=== PATIENT | male | born 1955 | race Two or more races ===

== ENCOUNTER 2024-03-20 06:22 | Inpatient (IN) | payer OTHER, MEDICAID ==
[2024-03-20] VITALS (8 sets, daily range): BP systolic 107–120; BP diastolic 72–82; PULSE 70–101; RESP 12–20; TEMP 98.6; O2SAT 94–95
[~2024-03-20] VITALS: Ht 180.3 cm; Wt 88.5 kg
[~2024-03-20 06:22] MED LIST: APIX2.5T PO; ATOR80TA PO; CARV3.1240 PO; CLOP75TA28 PO; LISI20TA56 PO; TAMS-35 PO
[2024-03-20] MEDS: PROTAMINE SULFATE 10 MG/ML 5ML VIAL IV ONE (06:35)
[2024-03-20] MEDS ORDERED: LIDOCAINE HCL 2% TOP JELLY 5ML TOP ONE (06:45)
[2024-03-20] MEDS ORDERED: ROCURONIUM 10MG/ML 10ML VIAL IV ONE (06:50)
[2024-03-20] MEDS ORDERED: PROPOFOL 10 MG/ML 20 ML IV ONE (06:50)
[2024-03-20] MEDS ORDERED: GLYCOPYRROLATE 0.2 MG/ML 1ML VIAL ONE (06:50)
[2024-03-20] MEDS ORDERED: ONDANSETRON HCL 4 MG/2 ML VIAL ONE (06:51)
[2024-03-20] MEDS ORDERED: LIDOCAINE 2% (LOCAL ANESTH.) PF 5ml SDV ONE (06:51)
[2024-03-20] MEDS ORDERED: SODIUM CHLORIDE LOCK 10 ML ONE ×3 (06:52→07:50)
[2024-03-20] MEDS ORDERED: PHENYLEPHRINE HCL 10 MG/ML VL ONE ×2 (06:52→07:50)
[2024-03-20] MEDS ORDERED: LIDOCAINE 1% INJ PF 5ML AMP ONE (06:52)
[2024-03-20] MEDS ORDERED: DexAMETHasone SOD PHOS 10MG/1ML VIAL INJ ONE (06:52)
[2024-03-20] MEDS: HEPARIN SODIUM (PORCINE) 5000 UNITS/ML 1ML VIAL ONE ×2 (07:15→08:09)
[2024-03-20] MEDS: ceFAZolin 2 GM/D5W100ml 100 ML IV ONE (07:20)
[2024-03-20] MEDS ORDERED: SUGAMMADEX 200mg/2ml Vial (100MG/ML) IV ONE (07:27)
[2024-03-20] MEDS ORDERED: ESMOLOL HCL 10 ML IV ONE (07:42)
[2024-03-20] MEDS ORDERED: fentaNYL CITRATE 100 MCG/2 ML VL ONE (07:54)
[2024-03-20] MEDS: BUPIVACAINE HCL 0.25% P/F 10 ML VIAL ONE (08:07)
[2024-03-20] MEDS: LIDOCAINE 1% (LOCAL ANESTH.) PF 5ml SDV ONE (08:08)
[2024-03-20] MEDS: LIDOCAINE 1% HCL (LOCAL ANESTH.) INJ 20ML MDV ONE (08:08)
[2024-03-20] MEDS ORDERED: METOPROLOL TARTRATE 1MG/1ML-5ML VIAL IV ONE ×2 (09:31→21:30)
[2024-03-20] MEDS ORDERED: FLUMAZENIL 0.1 MG/ML INJ 10ML MDV IV PRN (10:00)
[2024-03-20] MEDS ORDERED: hydrALAZINE HCL 20 MG/ML VL IV PRN (10:00)
[2024-03-20] MEDS ORDERED: fentaNYL CITRATE 100 MCG/2 ML VL IV PRN (10:00)
[2024-03-20] MEDS ORDERED: NALOXONE HCL 0.4 MG/ML VIAL IV PRN (10:00)
[2024-03-20] MEDS ORDERED: ePHEDrine SULFATE 50 MG/ML AMP IV PRN (10:00)
[2024-03-20] MEDS ORDERED: oxyCODONE HCL 5MG TAB PO PRN (10:00)
[2024-03-20] MEDS ORDERED: ONDANSETRON HCL 4 MG/2 ML VIAL IV PRN ×2 (10:00→14:00)
--- NOTE | 2024-03-20 10:02 | POSTOP ---
Post-Operative Note Post-Operative Note Preop Diagnosis Left ICA critical stenosis Postop Diagnosis: Same Operation performed Left carotid endarterectomy Specimen Left carotid plaque Anesthesia: General Anesthesiologist: General endotracheal tube Blood Loss(fluid mgmt) 200 mL Surgeon None Torres Gimenez MD Complications & Mgmt None Additional Remarks Stable to PACU Date 03/20/24 Time 10:00 TORRES GIMENEZ Jr., MD Mar 20, 2024 10:02
--- NOTE | 2024-03-20 10:07 | DVHOP2 ---
Operative Report - 2 Report Details Date: 03/20/24 Preop Diagnosis: Left ICA critical stenosis Postop Diagnosis: Same Surgeon: Torres Gimenez MD Anesthesiologist: General endotracheal tube Anesthesia: General Consent: The patient was informed of the risks and benefits of the procedure. These include but are not limited to complications of anesthesia, postoperative infection, incomplete relief of symptoms, recurrence of symptoms, damage to bloo d vessels, nerves and tendons, deep venous thrombosis, pulmonary embolism and possible need for repeat surgery in the future. Complications: None Estimated Blood Loss: 200 mL Name of Procedure Performed Left carotid endarterectomy Procedure Details Procedure Details: The patient was identified in preop hold area. Patient was consented and preopped by myself. He was brought back to the operating room placed on operating supine position after adequate induction of anesthesia antibiotics and time-out the left neck was prepped and draped in normal surgical fashion. Standard left carotid endarterectomy incision was made Bovie cauterization was used for hemostasis dissection was taken down through the platysma. The left IJ was then retracted laterally the facial vein was divided with silk sutures and hemoclips. The common carotid artery was then proximally controlled with vessel loops. Dissection was then taken up to the bifurcation 1% preservative-free lidocaine was injected in the carotid bulb no hemodynamic changes were noted. The superior thyroid artery and the external carotid artery were then proximally controlled with vessel loops individually. Finally the internal carotid artery was controlled distal to the plaque in the proximal ICA. 5000 units of heparin was then given. After 5 minutes the vessels involved were all clamped. Arteriotomy was made in the common carotid artery was extended into the internal carotid artery at this point in time the plaque was excised. A Cantor shunt was inserted and arterial flow was restored to the internal carotid artery were this point in time the intima of the common and internal carotid artery were inspected no further debris or plaque were noted a bovine pericardial patch was then sewn to the common and internal carotid artery in a running fashion with 6 0 Prolene sutures. Prior to completion of the anastomosis the shunt was removed. The anastomosis was complete at this point in time flow was restored to all vessels. Initially the external carotid artery was flow was restored common carotid artery was restored and finally the internal carotid artery was restored. The anastomosis was hemostatically stable. No bleeding noted. The wound was then irrigated out a 7 K[place] flat SCOTT drain was then inserted through a lateral incision. This was secured in place with the 3-0 nylon suture. Then the wound was then closed with the deep layer of including the carotid sheath wi th interrupted 2-0 Vicryl sutures followed by the platysmal layer being reapproximated with 2-0 Vicryl sutures followed by the dermal layer running 3-0 Vicryl suture. Followed by skin closure with 4-0 Monocryl subcuticular suture. Dermabond was applied to the skin a sterile dressing was applied on top of that patient awoke without any difficulties. Sponge and needle counts were correct. Patient was taken to the PACU in stable condition. Specimen: Left carotid plaque Condition Stable Disposition pacu TORRSE GIMENEZ Jr., MD Mar 20, 2024 10:07
[2024-03-20] MEDS ORDERED: NITROGLYCERIN 0.4 MG SL TAB SL PRN (14:00)
[2024-03-20] MEDS ORDERED: DOCUSATE SOD 100 MG CAP PO PRN (14:00)
[2024-03-20] MEDS ORDERED: ACETAMINOPHEN 325 MG TAB PO PRN (14:00)
[2024-03-20] MEDS ORDERED: HYDROcodone-ACET 5/325MG TAB PO PRN (14:00)
[2024-03-20] MEDS ORDERED: MORPHINE SULFATE INJ 2 MG/ml SYRG IV PRN (14:00)
[2024-03-20] MEDS: HYDROmorphone HCL 2 MG/ML VL/or syr IV PRN (15:12)
[2024-03-20] MEDS: HYDROmorphone HCL 2 MG/ML VL/or syr ONE (15:20)
[2024-03-20] MEDS ORDERED: KETAMINE 50mg/ML 1ml syringe IV ONE (15:59)
--- NOTE | 2024-03-20 16:38 | DVHHP2 ---
History of Present Illness Reason for Visit: PATIENT HAD ELECTIVE SURGERY FOR LEFT CAROTID ARTERY STENOSIS. History of Present Illness 68-YEAR-OLD MALE WITH A KNOWN HISTORY OF CHRONIC AFIB CURRENTLY ON ELIQUIS, HYPERTENSION, KNOWN CORONARY ARTERY DISEASE STATUS POST PCI WITH FIVE STENTS WHO INITIALLY PRESENTED TO THE HOSPITAL WITH ELECTROSURGERY ARTERY STENOSIS. PATIENT UNDERWENT LEFT CAROTID ENDARTERECTOMY. PATIENT DENIES ANY CHEST PAIN SHORTNESS OF BREATH DENIES ANY TIA OR STROKE-LIKE SYMPTOM .DENIES ANY FEVER , COUGH OR PHLEGM, HEMATEMESIS, MELENA, HEMATURIA. Cardiovascular: AFIB, CAD, HTN, AL, hyperipidemia Past Surgical History: Other (LEFT CAROTID ENDARTERECTOMY.) Family History: None Smoke: No ALCOHOL: none Review of Systems Review of Systems TWELVE REVIEW OF SYSTEM WERE NEGATIVE EXCEPT MENTIONED ABOVE. Allergies: Coded Allergies: NO KNOWN ALLERGIES (Unverified , 03/17/24) Medications Current Medications Medications Dose Ordered Sig/Suzanna Route Start Time Stop Time Status Last Admin Dose Admin Nicardipine HCl 250 ml @ 50 mls/hr Q5H IV 03/20/24 07:45 Oxycodone HCl 10 mg ONCE PRN PO 03/20/24 10:00 Hold Acetaminophen/ Hydrocodone Bitart 1 tab Q4HP PRN PO 03/20/24 14:00 Hold Ondansetron HCl 4 mg Q4HP PRN IV 03/20/24 14:00 Docusate Sodium 100 mg BIDPRN PRN PO 03/20/24 14:00 Acetaminophen 650 mg Q6HP PRN PO 03/20/24 14:00 Nitroglycerin 0.4 mg Q5MINP PRN SL 03/20/24 14:00 Morphine Sulfate 2 mg Q30M PRN IV 03/20/24 14:00 Exam Vital Signs Vital Signs Date Time Temp Pulse Resp B/P (MAP) Pulse Ox O2 Delivery O2 Flow Rate FiO2 03/20/24 16:05 97 13 105/72 (83) 97 03/20/24 11:05 Nasal Cannula 2.0 03/20/24 09:47 97.6 97.6 Exam HEENT PUPILS REACTIVE NECK HAS ANTISEPTIC NURSE IN THE LEFT CALF AREA CVS S1-S2 REGULAR RATE AND RHYTHM 0 EIGHT GI POSITIVE BOWEL SOUNDS 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 1. LEFT CAROTID ARTERY STENOSIS STATUS POST CAROTID ENDARTERECTOMY 2. CHRONIC AFIB 3. HYPERTENSION 4. CORONARY ARTERY DISEASE STATUS POST PCI WITH FIVE STENTS 5. BPH -ADMIT TO ICU FOR CLOSE MONITORING. -CONTINUE CURRENT MANAGEMENT, DISCHARGE PLAN PER VASCULAR SURGERY Plan discussed with: Patient My Orders Orders - MIGUELITO HENRY MD Procedure Category Date Status Time Code Status CODE 03/20/24 Transmitted 13:58 2 Gm Sodium Diet DIET 03/20/24 Transmitted Dinner Hydrocodone-Acet PHA 03/20/24 In Process 5/325mg Tab ([place] 14:00 Ondansetron Hcl PHA 03/20/24 In Process (Zofran) 14:00 Docusate Sodium PHA 03/20/24 In Process Capsule (Colace 14:00 Pt Request For Service PT 03/20/24 Logged 13:58 Condition: Fair ROMINA 03/20/24 In Process 13:58 Acetaminophen Tablet PHA 03/20/24 In Process (Tylenol Tablet) 14:00 Nitroglycerin PHA 03/20/24 In Process Sublingual (Ntrostat 14:00 Morphine Sulfate PHA 03/20/24 In Process Injection 14:00 Stat Ekg For Chest ROMINA 03/20/24 In Process Pain 13:58 Notify Md Of Changes ROMINA 03/20/24 In Process From Base 13:58 Cytology Laboratory Manager For ROMINA 03/20/24 In Process 24 Hours 13:58 Emergency Dysrhythmia [facility] 03/20/24 In Process Protocol 13:58 Rhythm Strips Once ROMINA 03/20/24 In Process Every Shift 13:58 Oxygen By Nasal RT 03/20/24 Transmitted Cannula 13:58 Admit ADMIT 03/20/24 Transmitted 14:35 Date of Service: Mar 20, 2024 Billing Provider: MIGUELITO HENRY MD Common Visit Codes: NOT BILLABLE MIGUELITO HENRY MD Mar 20, 2024 16:38
[2024-03-21] VITALS (53 sets, daily range): BP systolic 120–186; BP diastolic 45–128; PULSE 76–113; RESP 0–23; TEMP 36.9; O2SAT 94–98
[2024-03-21] MEDS ORDERED: IOHEXOL 350 MG/ML 100ML IJ ONE ×2 (01:49→01:58)
--- NOTE | 2024-03-21 02:27 | BSKYNEURO ---
[facility] Note # Demographics Consult Type: Acute Stroke Level 1 (0-4.5 hrs) Patient Location: Inpatient First Name: Willian Last Name: Nadege Date of : 1955 Age: 68 Gender: Male Facility: [facility] Time of Initial Page (): 03/21/2024, 00:59 Time of Return Call (): 03/21/2024, 01:12 # HPI Chief Complaint: - speech changes History: 68M with chronic atrial fibrillation on apixaban, HTN, CAD s/p stents, HLD admitted for a left carotid endarterectomy noted to have asymmetric face, word finding difficulties, and slurred speech. [id number]; noted at 0045. # Scores Time of exam and NIHSS (): 03/21/2024, 01:25 Level of Consciousness 1a: [0] = Alert; keenly responsive LOC Questions 1b: [0] = Answers both questions correctly LOC Commands 1c: [0] = Performs both tasks correctly Best Gaze 2: [0] = Normal Visual 3: [0] = No visual loss Facial Palsy 4: [2] = Partial paralysis Motor Arm Left 5a: [0] = No drift Motor Arm Right 5b: [0] = No drift Motor Leg Left 6a: [0] = No drift Motor Leg Right 6b: [0] = No drift Limb Ataxia 7: [0] = Absent Sensory 8: [0] = Normal Best Language 9: [0] = No aphasia Dysarthria 10: [1] = [id number] dysarthria Extinction and Inattention 11: [0] = No abnormality NIHSS Total: 3 # Data Time Head CT personally read by me (): 03/21/2024, 02:[address]: - no bleed - preliminarily reviewed by me, please refer to radiology read for official reading CTA Head: - no large vessel occlusion - preliminarily reviewed by me, please refer to radiology read for official reading CTA Neck: - patent vessels - preliminarily reviewed by me, please refer to radiology read for official reading # Assessment Impression: r/o stroke # Plan Thrombolytic/Intervention: NOT IV Thrombolysis or IA Intervention candidate Thrombolytic Exclusion (< 3 hour window): - major surgery < 14 days Intraarterial Exclusion: - no large vessel occlusion (LVO) Target Blood Pressure: - SBP < 220 - DBP < 105 Labs: - hemoglobin A1c - lipid panel Imaging: (urgency: routine): - MRI Brain without contrast Diagnostic Test: - echo without bubble study Therapy/Evaluation: - PT/OT evaluation - speech/swallow consultation Medication: ASA 325 x1 then 81 daily while apixaban is held Restart apixaban in 1-2 days if OK with vascular surgery High intensity statin with goal LDL < 70 Other: - If patient has any neurological deterioration please call me back immediately Disposition: continue admission # Logistics Attestation of consult completion: The patient is located at: [facility]. Facility staff participated in the visit. I performed this t elemedicine visit from my offsite office utilizing interactive 2 way audio and visual telecommunication technology. Consent: Verbal consent was obtained from the patient and/or family for this encounter. Total time spent in telemedicine encounter: I spent 15 minutes reviewing clinical data and/or imaging, obtaining history, examining the patient, communicating with the onsite care team, and in preparation of this report. Electronically signed at 03/21/2024 02:27 ([place] Time) by Rafael Drew MD Yes RAFAEL DREW MD Mar 21, 2024 02:27
[2024-03-21 02:54] LABS: Basophils # (auto) 0 10 ^3/uL (0-0.2); Basophils % (auto) 0.2 % (0.0-2.0); Eosinophils # (auto) 0 10 ^3/uL (0-0.8); Hematocrit 41.9 % (41.0-53.0); Hemoglobin 14.2 g/dL (13.5-17.5); Lymphocytes % (auto) 6.7 % (10.0-50.0); Mean Corpuscular Hemoglobin 30.5 pg (28.0-32.0); Mean Corpuscular Hgb Conc. 33.9 g/dL (32.0-36.0); Monocytes % (auto) 6.6 % (0.0-12.0); Neutrophils % (auto) 86.5 % (37.0-80.0); Platelet Count (auto) 227 10^3/uL (140-450); Red Blood Cells 4.66 10^6/uL (4.5-5.90); Red Cell Distribution Width 12.9 % (11.8-14.3); White Blood Cell 15.1 10^3/uL (4.4-10.8)
[2024-03-21 03:12] LABS: Alanine Aminotransferase 22 U/L (7-40); Alkaline Phosphatase 51 U/L (46-116); Anion Gap 10 (5-15); Aspartate Aminotransferase 13 U/L (13-40); BUN/Creatinine Ratio 19.4 (10.0-20.0); Blood Urea Nitrogen 19 mg/dL (9-23); Calcium 9.6 mg/dL (8.7-10.4); Carbon Dioxide 23 mmol/L (20-31); Chloride 101 mmol/L (98-107); Potassium 4.6 mmol/L (3.5-5.1)
[2024-03-21 03:13] LABS: Bilirubin, Total 0.9 mg/dL (0.2-1.0); Total Protein 6.3 g/dL (5.7-8.2)
[2024-03-21 03:14] LABS: INR 1.03 (0.9-1.15); Partial Thromboplastin Time 25.2 SEC (24.5-34.5); Prothrombin Time 10.9 sec (9.3-11.8)
[2024-03-21 03:15] LABS: Glucose 165 mg/dL (74-106); Sodium 134 mmol/L (136-145)
[2024-03-21] MEDS: SODIUM CHLORIDE 0.9% 1,000 ML IV SCH (03:22)
--- NOTE | 2024-03-21 03:56 | DVH ---
Examination: HWOCT CLINICAL INDICATION: R/O CVA. COMPARISON: None. CONTRAST USED: Intravenous. CT ANGIOGRAPHY HEAD NECK TECHNIQUE: Axial images were obtained through the head and neck with contrast. Sagittal, coronal an d oblique reconstructions were included, as well as MIP reconstruction. The 3-D reconstructed images are also performed. CT scan was done according to ALARA (As Low As Reasonably Achievable). TECHNICAL QUALITY: Adequate. FINDINGS: ARTERIES OF THE NECK: The common carotid arteries are normal on both sides. Cervical course of bilateral internal carotid arteries is normal. Scattered atherosclerotic calcific plaques noted at the bilateral carotid bifurcations (right more th an left). The external carotid artery and branches are normal. Both vertebral arteries appear normal in the neck. The bilateral internal jugular veins show normal contrast opacification. ARTERIES OF THE BRAIN: No evidence of stenosis or aneurysm or AVM is visualized. The cavernous and supraclinoid parts of the internal carotid arteries show normal caliber. Atherosclerotic calcifications noted in intracranial parts of bilateral internal carotid and vertebra l arteries. The anterior cerebral arteries and anterior communicating artery appear normal. The M1, M2 and M3 segments of the middle cerebral arteries appear normal on both sides. Hypoplastic right posterior communicating artery. The left posterior communicating artery appears normal. The posterior cerebral arteries (P1, P2 and P3 segments) appear normal. The basilar artery and its bifurcation appear normal. The intracranial part of the vertebral arteries appears normal. The visualized major cerebral veins and dural venous sinuses are normal, with no filling defect seen within them. Visualized lung apices: Surgical drain noted on the left side with its tip posteroinferior to the left submandibular gland. 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 Few small radiodensities in the neck on the left side, deep to the left sternocleidomastoid muscle. Advised clinical correlation. Subpleural subsegmental atelectatic areas and/or scarring in the dependent parts of bilateral lung ap ices. Areas of ground-glass attenuation noted in visualized bilateral lung apices, larger of approximate si ze 23 x 18 mm on the right side. Advised dedicated further evaluation with CT chest without contrast . IMPRESSION: 1. No thrombosis or stenosis or aneurysm is seen. 2. Atherosclerotic calcifications noted in intracranial parts of bilateral internal carotid, vertebr al arteries and at bilateral carotid bifurcations (right more than left). 3. Chronic and/or ancillary findings as described above. CT HEAD WITHOUT CONTRAST TECHNIQUE: The examination was performed obtaining 5 mm slices without contrast. CT scan was done ac cording to ALARA (As Low as Reasonably Achievable). Multiplanar reconstructions were obtained. FINDINGS: SUPRATENTORIAL BRAIN: Cerebral Hemispheres: There is no midline shift or mass effect, intra or extra-axial fluid collections or hemorrhage. Periventricular White Matter/Basal Ganglia: No abnormal areas of altered attenuation within the periventricular white matter or basal ganglia. POSTERIOR FOSSA: The brainstem is normal and the visualized cerebellar hemispheres are unremarkable. VENTRICULAR SYSTEM: The ventricular system is normal in size. There is no evidence of hydrocephalus or transependymal flow of cerebrospinal fluid. SKULL BASE AND PARASELLAR REGION: The skull base is normal with no parasellar masses or abnormalities identified. CALVARIUM AND SCALP REGION: No abnormality is seen. PARANASAL SINUSES: No significant inflammatory changes are identified in the visualized paranasal sinuses. Scleral buckle noted in the right eye. Dental prostheses noted giving intense adjacent streak artifacts. IMPRESSION: 1. No evidence of acute large vessel territorial ischemic infarction or intraparenchymal hematoma in current study. 2. Chronic and / or ancillary findings as described above. 3. Advised further evaluation with MRI brain without contrast if clinically indicated. Electronically Signed 03/21/2024 03:54 Randall Gonzalez
--- NOTE | 2024-03-21 07:16 | DVHPN2 ---
Progress Note Date Seen: Mar 21, 2024 Has the PT tested + for MRSA If YES, has PT been informed?: No Medical Necessity Reason Pt with a Central, PICC or Fol: No Subjective Patient reports: Other (MILD PAIN IN THE LEFT NECK INCISION SITE.) Changes from previous H/P or p: No Changes Objective vital signs Vital Sign Date Time Temp Pulse Resp B/P (MAP) Pulse Ox O2 Delivery O2 Flow Rate FiO2 03/21/24 06:00 99 03/21/24 05:24 18 Room Air* 0 21 03/21/24 05:00 137/76 (96) 96 03/21/24 04:00 98.0 98.0 Total Intake and Output 03/20/24 03/20/24 03/21/24 15:00 23:00 07:00 Intake Total 50 ml Output Total 437 ml 201 ml Balance -437 ml -201 ml 50 ml medications Current Medications Medications Dose Ordered Sig/Suzanna Route Start Time Stop Time Status Last Admin Dose Admin Nicardipine HCl 250 ml @ 50 mls/hr Q5H IV 03/20/24 07:45 Oxycodone HCl 10 mg ONCE PRN PO 03/20/24 10:00 Hold Acetaminophen/ Hydrocodone Bitart 1 tab Q4HP PRN PO 03/20/24 14:00 Hold Ondansetron HCl 4 mg Q4HP PRN IV 03/20/24 14:00 Docusate Sodium 100 mg BIDPRN PRN PO 03/20/24 14:00 Acetaminophen 650 mg Q6HP PRN PO 03/20/24 14:00 Nitroglycerin 0.4 mg Q5MINP PRN SL 03/20/24 14:00 Morphine Sulfate 2 mg Q30M PRN IV 03/20/24 14:00 Sodium Chloride 1,000 ml @ 100 mls/hr Q10H IV 03/21/24 03:00 03/21/24 03:22 100 MLS/HR Examination: GENERAL:Normal, HEENT:Normal, NECK:Normal, LUNGS:Normal, CVS:Normal, ABDOMEN:Normal, MSK:Normal, SKIN:Normal, NEURO:Normal, NEURO:Abnormal (LEFT LIP CREASE MILD DROOP. LEFT JAW IS DECREASED SENSATION), :Normal, Any Other System: laboratory and microbiology Laboratory Tests 03/21/24 02:42 Test 03/21/24 02:42 Range/Units Serum Glucose 165 H 74-106 mg/dL Labs and/or images reviewed: Labs reviewed by me Problem List/Assessment/Plan Problem List/Assessment/Plan STATUS POST LEFT CAROTID ENDARTERECTOMY POSTOP DAY 1. DATE OF PROCEDURE WAS 03 20 2024. OVERNIGHT PATIENT DID WELL UNDERWENT A HEAD CT WHICH WAS NEGATIVE FOR ANY ACUTE STROKE. PATIENT CONTINUES TO HAVE MILD LIP DEVIATION ON THE LEFT SIDE SECONDARY TO RETRACTION RECOMMEND OUT OF BED THIS MORNING RECOMMEND LEO DIET DISCHARGED HOME TODAY ON HOME MEDICATIONS. Plan discussed with: Patient My Orders My Orders Orders - BETZAIDA HAMILTON Jr., MD Procedure Category Date Status Time Angio Head/Neck CT 03/21/24 Resulted 01:30 Sodium Chloride 0.9% PHA 03/21/24 In Process 03:00 Mrsa Screen RAQUEL 03/21/24 In Process 04:30 BETZAIDA HAMILTON Jr., MD Mar 21, 2024 07:16
[2024-03-21] MEDS: CARVEDILOL 3.125 MG TAB PO ONE (14:59)
[2024-03-21] MEDS: LISINOPRIL 20 MG TAB PO SCH (15:00)
--- NOTE | 2024-03-21 15:26 | DVHDS2 ---
Discharge Summary Date of Admission Mar 20, 2024 at 13:58 Date of Discharge: Mar 21, 2024 Labs/Diagnostic Data: Laboratory Results Test 03/21/24 02:42 03/21/24 01:16 White Blood Count 15.1 10^3/uL (4.4-10.8) Red Blood Count 4.66 10^6/uL (4.5-5.90) Hemoglobin 14.2 g/dL (13.5-17.5) Hematocrit 41.9 % (41.0-53.0) Mean Corpuscular Volume 90.0 fL (80.0-100.0) Mean Corpuscular Hemoglobin 30.5 pg (28.0-32.0) Mean Corpuscular Hemoglobin Concent 33.9 g/dL (32.0-36.0) Red Cell Distribution Width 12.9 % (11.8-14.3) Platelet Count 227 10^3/uL (140-450) Mean Platelet Volume 7.8 fL (6.9-10.8) Neutrophils (%) (Auto) 86.5 % (37.0-80.0) Lymphocytes (%) (Auto) 6.7 % (10.0-50.0) Monocytes (%) (Auto) 6.6 % (0.0-12.0) Eosinophils (%) (Auto) 0.0 % (0.0-7.0) Basophils (%) (Auto) 0.2 % (0.0-2.0) Neutrophils # (Auto) 13.0 10 ^3/uL (1.6-8.6) Lymphocytes # (Auto) 1.0 10 ^3/uL (0.4-5.4) Monocytes # (Auto) 1.0 10 ^3/uL (0-1.3) Eosinophils # (Auto) 0 10 ^3/uL (0-0.8) Basophils # (Auto) 0 10 ^3/uL (0-0.2) Nucleated Red Blood Cells 0.0 % Prothrombin Time 10.9 sec (9.3-11.8) Prothrombin Time INR 1.03 (0.9-1.15) Activated Partial Thromboplast Time 25.2 SEC (24.5-34.5) Sodium Level 134 mmol/L (136-145) Potassium Level 4.6 mmol/L (3.5-5.1) Chloride Level 101 mmol/L (98-107) Carbon Dioxide Level 23 mmol/L (20-31) Anion Gap 10 (5-15) Blood Urea Nitrogen 19 mg/dL (9-23) Creatinine 0.98 mg/dL (0.700-1.30) Glomerular Filtration Rate Calc 85 mL/min (>90) BUN/Creatinine Ratio 19.4 (10.0-20.0) Serum Glucose 165 mg/dL (74-106) Calcium Level 9.6 mg/dL (8.7-10.4) Total Bilirubin 0.9 mg/dL (0.2-1.0) Aspartate Amino Transferase (AST) 13 U/L (13-40) Alanine Aminotransferase (ALT) 22 U/L (7-40) Alkaline Phosphatase 51 U/L (46-116) Troponin I High Sensitivity 5 ng/L (</=54) Total Protein 6.3 g/dL (5.7-8.2) Albumin 4.0 g/dL (3.2-4.8) POC Glucose 180 mg/dl (70-106) Other Laboratory Tests 03/21/24 02:42 Brief Hx & Hospital Course: 68-YEAR-OLD MALE WITH KNOWN HISTORY OF CORONARY ARTERY DISEASE STATUS POST PCI, CHRONIC AFIB, DYSLIPIDEMIA, BPH ,PLAN TO THE HOSPITAL FOR ELECTIVE PROCEDURE FOR LEFT CAROTID ARTERY STENOSIS. Patient underwent left carotid endarterectomy. Patient was a known history of chronic AFib currently on Eliquis. Patient does have known history of coronary artery disease status post PCI with five stents. Patient was kept in ICU hospital course was eventful for questionable TIA eventually tele neuro was called and MRI brain was recommended but patient was not want it done. Patient was currently has no motor deficit. Patient was already on Eliquis. Patient was being discharged under stable condition. Risk of stroke explained with the patient as he was code stroke called in the ICU but patient does not want to get MRI brain done. Please follow up with the PCP and vascular surgery as an outpatient in one week. Please return to ER if there is any TIA stroke-like symptoms. Condition at Discharge: Stable Final Diagnosis/Problems List Left carotid artery stenosis status post left carotid endarterectomy Discharge Disposition: Home SNF Discharge Will this Physician continue t: No Discharge Instruct/Medications Diet: Cardiac 2g Na,low cholest Activity: No Restrictions, As Tolerated Follow Up/Referral: Follow up with PCP in 1-2 weeks Follow up with Dr gonzalez in 1-2 weeks Medications: Resume home medications Discharge Statement: "Patient was advised to return to the ER or call 911 if any headaches, dizziness, shortness of breath, chest pain, abdominal pain, bleeding, fevers, or worsening of medical condition. Patient was counseled about treatment plan, medications, possible side effects, patientverbalized understanding. All questions were answered to the best of my ability. This discharge took greater then 30 minutes in planning, reviewing documentation, counseling the patient, and discussing with other team members." ASSESSMENT ASSESSMENT Assessment Left carotid artery stenosis status post left carotid endarterectomy Date of Service: Mar 21, 2024 Billing Provider: MIGUELITO HENRY MD Common Visit Codes: NOT BILLABLE MIGUELITO HENRY MD Mar 21, 2024 15:26
[2024-03-22] MEDS ORDERED: CARVEDILOL 3.125 MG TAB PO SCH (10:00)
== END 2024-03-21 16:00 | disposition home or self-care (01) | DRG 38 ==
LOC: SUR 06:22 → TELE 13:58 → ICU WEST 20:53
PROVIDERS: ADMIT Internal Medicine; ATTEND Internal Medicine
PROC: 03CL0ZZ Extirpation of Matter from Left Internal Carotid Artery, Open Approach (ICD-10-PCS; 2024-03-20)
PROC: 03CN0ZZ Extirpation of Matter from Left External Carotid Artery, Open Approach (ICD-10-PCS; 2024-03-20)
PROC: 03UJ0KZ Supplement Left Common Carotid Artery with Nonautologous Tissue Substitute, Open Approach (ICD-10-PCS; 2024-03-20)
PROC: 03UL0KZ Supplement Left Internal Carotid Artery with Nonautologous Tissue Substitute, Open Approach (ICD-10-PCS; 2024-03-20)
PROC: 03CJ0ZZ Extirpation of Matter from Left Common Carotid Artery, Open Approach (ICD-10-PCS; principal; 2024-03-20 07:28)
DX: I65.22 Occlusion and stenosis of left carotid artery (principal); I48.20 Chronic atrial fibrillation, unspecified; I25.10 Atherosclerotic heart disease of native coronary artery without angina pectoris; I10 Essential (primary) hypertension; N40.0 Benign prostatic hyperplasia without lower urinary tract symptoms; E78.5 Hyperlipidemia, unspecified; I77.1 Stricture of artery; Z79.01 Long term (current) use of anticoagulants; Z98.61 Coronary angioplasty status
CPT/HCPCS: 36415; 70496; 80053; 82962; 84484; 85025; 85610; 85730; 86850; 86900; 86901; 87081; 97163; G0378; J1100; J2003; J2405; J2704; J3490

== ENCOUNTER 2025-03-14 08:20 | Inpatient (IN) | payer OTHER, MEDICAID ==
[~2025-03-14] VITALS: Ht 180.3 cm; Wt 88.0 kg
[2025-03-15 09:21] VITALS: BP 152/67; PULSE 52; RESP 18; TEMP 98.3; O2SAT 100; O2SAT 96
[2025-03-15] MEDS ORDERED: CALC1TAB64 PO (09:50)
[2025-03-15] MEDS: SODIUM CHLORIDE 0.9% 1,000 ML IV SCH (10:30)
[2025-03-15] MEDS ORDERED: ONDANSETRON HCL 4 MG/2 ML VIAL IV PRN (10:30)
[2025-03-15] MEDS ORDERED: MORPHINE SULFATE INJ 2 MG/ml SYRG IV PRN (10:30)
[2025-03-15 13:00] VITALS: BP 152/84; PULSE 54; RESP 18; TEMP 97.7; O2SAT 100
[2025-03-15] MEDS: CARVEDILOL 3.125 MG TAB PO ONE (14:11)
--- NOTE | 2025-03-15 14:20 | DVHHP2 ---
History of Present Illness Reason for Visit: Elective procedure for pacemaker placement History of Present Illness 69-year-old male with a known history of hypertension, chronic AFib currently on Eliquis, history of CVA was on Plavix currently taken off three weeks ago, history of left carotid artery stenosis status post carotid endarterectomy was seen in the office by Dr. Skinner delivery coordinator found, patient was found to have sinus pause 5 seconds. Eventually patient was recommended to be admitted for elective permanent pacemaker placement. Patient is currently denies any chest pain shortness of breaths fevers chills cough or phlegm. Cardiovascular: AFIB, CAD, HTN, hyperipidemia PSYCHIATRIC NURSING AIDE: CVA Past Surgical History: Other (Left carotid endarterectomy, status post PCI with a five stents.) Family History: None Smoke: No ALCOHOL: none Review of Systems Review of Systems Twelve review of system are negative besides mentioned above. Allergies: Coded Allergies: NO KNOWN ALLERGIES (Unverified , 03/17/24) Medications Current Medications Medications Dose Ordered Sig/Suzanna Route Start Time Stop Time Status Last Admin Dose Admin Sodium Chloride 1,000 ml @ 70 mls/hr [id number] IV 03/15/25 10:30 Morphine Sulfate 2 mg Q4HPRN PRN IV 03/15/25 10:30 Ondansetron HCl 4 mg Q4HPRN PRN IV 03/15/25 10:30 Tamsulosin HCl 0.4 mg DAILY PO 03/16/25 10:00 Lisinopril 20 mg DAILY PO 03/16/25 10:00 Carvedilol 3.125 mg DAILY PO 03/16/25 10:00 Atorvastatin Calcium 80 mg DAILY PO 03/16/25 10:00 Exam Vital Signs Vital Signs Date Time Temp Pulse Resp B/P (MAP) Pulse Ox O2 Delivery O2 Flow Rate FiO2 03/15/25 14:11 57 03/15/25 09:21 Room Air* 0 21 03/15/25 09:21 98.3 18 152/67 (95) 96 98.3 Exam HEENT pupils are reactive Neck is supple CV is S1-S2 regular rate and rhythm Respiratory bilateral clear GI positive bowel sound Extremity no edema PSYCHIATRIC NURSING AIDE no motor deficit SEPSIS Sepsis Screen Physician Orders Admit (03/15/25 09:22) Oxygen By Nasal Cannula (03/15/25 09:22) Stat Ekg For Chest Pain (03/15/25 09:22) Notify Md Of Changes From Base (03/15/25 09:22) Edi Programmer Analyst For 24 Hours (03/15/25 09:22) Emergency Dysrhythmia Protocol (03/15/25 09:22) Rhythm Strips Once Every Shift (03/15/25 09:22) * Cardiology Consult (03/15/25 09:22) Mrsa Screen (03/15/25 09:57) Sodium Chloride 0.9% (03/15/25 10:30) Morphine Sulfate Injection (03/15/25 10:30) Ondansetron Hcl (Zofran) (03/15/25 10:30) Cardiac Diet-2gna,Lofat,Lochol (03/15/25 Lunch) Npo (Nothing By Mouth) Diet (03/16/25 Breakfast) Obtain Consent For Anesthesia (03/15/25 11:52) Complete Blood Count (03/15/25 13:39) Comprehensive Metabolic Panel (03/15/25 13:39) Prothrombin Time W/ Inr (03/15/25 13:39) Tamsulosin Hydrochloride (Flomax) (03/15/25 14:15) Tamsulosin Hydrochloride (Flomax) (03/16/25 10:00) Lisinopril Tablet (Zestril Tablet) (03/15/25 14:15) Lisinopril Tablet (Zestril Tablet) (03/16/25 10:00) Carvedilol Tablet (Coreg Tablet) (03/15/25 14:15) Carvedilol Tablet (Coreg Tablet) (03/16/25 10:00) Atorvastatin (Lipitor) (03/15/25 14:15) Atorvastatin (Lipitor) (03/16/25 10:00) Vital Signs Date Time Temp Pulse Resp B/P (MAP) Pulse Ox O2 Delivery O2 Flow Rate FiO2 03/15/25 14:11 57 03/15/25 09:21 Room Air* 0 21 03/15/25 09:21 98.3 52 18 152/67 (95) 96 98.3 03/15/25 09:21 98.3 52 18 152/67 (95) 100 98.3 Assessment/Plan Assessment/Plan 69-year-old male with a known history of CAD status post PCI with a five stents, hypertension, chronic AFib currently on Eliquis, history of CVA was on Plavix currently taken off three weeks ago, history of left carotid artery stenosis status post carotid endarterectomy was seen in the office by , delivery coordinator found, patient was found to have sinus pause 5 seconds. 1. Sinus pause scheduled for pacemaker placement 2. Chronic AFib 3. CAD status post PCI 4. Hypertension 5. History of CVA without any residual deficit 6. Left carotid artery stenosis status post left carotid endarterectomy -admit to telemetry check labs, cardiology consultation for permanent pacemaker placement, hold beta jose, hold Eliquis for permanent pacemaker placement as per Cardiology. -risk of stroke while off of Eliquis explained to the patient in detail, patient understand verbalized understanding and agreeable to plan. Plan discussed with: Patient My Orders Orders - MIGUELITO HENRY MD Procedure Category Date Status Time Sodium Chloride 0.9% PHA 03/15/25 In Process 10:30 Morphine Sulfate PHA 03/15/25 In Process Injection 10:30 Ondansetron Hcl PHA 03/15/25 In Process (Zofran) 10:30 Tamsulosin PHA 03/15/25 In Process Hydrochloride (Flomax) 14:15 Tamsulosin PHA 03/16/25 In Process Hydrochloride (Flomax) 10:00 Lisinopril Tablet PHA 03/15/25 In Process (Zestril Tablet) 14:15 Lisinopril Tablet PHA 03/16/25 In Process (Zestril Tablet) 10:00 Carvedilol Tablet PHA 03/15/25 In Process (Coreg Tablet) 14:15 Carvedilol Tablet PHA 03/16/25 In Process (Coreg Tablet) 10:00 Atorvastatin (Lipitor) PHA 03/15/25 In Process 14:15 Atorvastatin (Lipitor) PHA 03/16/25 In Process 10:00 Problem List: (1) Sinus pause Date of Service: Mar 15, 2025 Billing Provider: MIGUELITO HENRY MD Common Visit Codes: NOT BILLABLE MIGUELITO HENRY MD Mar 15, 2025 14:20
[2025-03-15] MEDS: ATORVASTATIN 20 MG TAB PO ONE (14:43)
[2025-03-15] MEDS: TAMSULOSIN HYDROCHLORIDE 0.4 MG CAP PO ONE (14:44)
[2025-03-15] MEDS: LISINOPRIL 20 MG TAB PO ONE (14:44)
[2025-03-15 14:46] LABS: Hematocrit 38.3 % (41.0-53.0); Hemoglobin 13.3 g/dL (13.5-17.5); Mean Corpuscular Hemoglobin 30.9 pg (28.0-32.0); Mean Corpuscular Volume 88.8 fL (80.0-100.0); Nucleated Red Blood Cells % 0.3 %
[2025-03-15 15:00] LABS: Alanine Aminotransferase 33 U/L (7-40); Anion Gap 9 (5-15); BUN/Creatinine Ratio 16.7 (10.0-20.0); Blood Urea Nitrogen 19 mg/dL (9-23); Calcium 9.3 mg/dL (8.7-10.4); Carbon Dioxide 29 mmol/L (20-31); Chloride 101 mmol/L (98-107); Potassium 4.1 mmol/L (3.5-5.1); Sodium 139 mmol/L (136-145); Total Protein 6.5 g/dL (5.7-8.2)
[2025-03-15 15:01] LABS: Albumin 4.0 g/dL (3.2-4.8); Bilirubin, Total 0.8 mg/dL (0.2-1.0)
[2025-03-15 15:02] LABS: Alkaline Phosphatase 38 U/L (46-116); Glucose 145 mg/dL (74-106)
[2025-03-15 15:08] LABS: INR 1.03 (0.9-1.15); Prothrombin Time 10.9 sec (9.3-11.8)
[2025-03-15 17:00] VITALS: BP 147/87; PULSE 56; RESP 18; TEMP 98.5; O2SAT 96
--- NOTE | 2025-03-15 17:01 | DVHINCON2 ---
Date Seen: Mar 15, [address] Samuel Reason for Consultation Syncope History of Present Illness 61-year-old gentleman recently hospitalized with a history of syncope. He was subsequently discharged home in his event monitor analyzed as an outpatient shows several pauses the longest of which was of 5.2nd pause which was associated with his syncopal event. He has had several of these episodes. He is status post cardiac ablation and it appears he is still getting palpitations intermixed with episodes of significant pauses which are predominantly his symptoms. He has past medical history is as will be noted significant for hypertension and coronary artery disease. He denies any chest pain at this time. Past Medical History Past medical history significant for cardiac stenting/CAD. Hypertension. Hyperlipidemia. Carotid stenosis. Past Surgical History As previously mentioned Family History: FHx: leukemia G8 MOTHER, Allergies: Coded Allergies: NO KNOWN ALLERGIES (Unverified , 03/17/24) Home Meds Reported Medications Calcium Carbonate-Cholecalcife (Calcium 500 +D3 500-600 mg-Unit) 1 Tab Tab, 1 TAB PO DAILY, TAB 03/15/25 Tamsulosin Hcl (Flomax) 0.4 Mg Cap, 0.4 MG PO DAILY, CAP 03/17/24 Atorvastatin Calcium (Lipitor) 80 Mg Tab, 80 MG PO DAILY, TAB 03/17/24 Apixaban Base (ELIQUIS) 2.5 Mg Tab, 2.5 MG PO DAILY, TAB 03/17/24 Carvedilol (Carvedilol) 3.125 Mg Tab, 3.125 MG PO DAILY, TAB 03/17/24 Lisinopril (Lisinopril) 20 Mg Tab, 20 MG PO, TAB 03/17/24 Clopidogrel Bisulfate (Plavix) 75 Mg Tab, 75 MG PO DAILY, TAB 03/17/24 Current Medications Current Medications Medications (Trade) Dose Ordered Sig/Suzanna Route PRN Reason Start Time Stop Time Status Last Admin Sodium Chloride 1,000 ml @ 70 mls/hr [id number] IV 03/15/25 10:30 Morphine Sulfate 2 mg Q4HPRN PRN IV SEVERE PAIN (7-10 PAIN SCALE) 03/15/25 10:30 Ondansetron HCl (Zofran) 4 mg Q4HPRN PRN IV NAUSEA / VOMITING 03/15/25 10:30 Tamsulosin HCl (Flomax) 0.4 mg DAILY PO 12/5/25 10:00 Lisinopril (Zestril Tablet) 20 mg DAILY PO 03/16/25 10:00 Carvedilol (Coreg Tablet) 3.125 mg DAILY PO 03/16/25 10:00 03/15/25 16:06 DC Atorvastatin Calcium (Lipitor) 80 mg DAILY PO 03/16/25 10:00 Review of Systems No constitutional symptoms of fevers chills or weight loss. Cardiac and respiratory as noted. History of syncope. Neurologically without a history of seizure disorder. GI and musculoskeletal negative. Hematological and oncological negative. Neuro psychiatrically negative. Vital Signs Vital Signs Date Time Temp Pulse Resp B/P (MAP) Pulse Ox O2 Delivery O2 Flow Rate FiO2 03/15/25 14:44 152/84 03/15/25 14:11 57 03/15/25 13:00 97.7 18 100 97.7 03/15/25 09:21 Room Air* 0 21 Physical Exam He is awake alert and oriented no acute distress. Atraumatic and normocephalic skull. Pupils are equally reactive orally well hydrated. Trachea central neck supple thyroid is nonpalpable no jugular distention no bruits. Lungs reveal good air entry no rales or rhonchi. Heart exam reveals regular S1-S2 soft S4. abdominal examination is unremarkable. Extremities reveal adequate perfusion without clubbing cyanosis no edema. Neurologically intact. Integumentary is otherwise within normal limits. Labs/Diagnostic Data Labs Test 03/15/25 14:19 Range/Units White Blood Count 4.3 L 4.4-10.8 10^3/uL Red Blood Count 4.32 L 4.5-5.90 10^6/uL Hemoglobin 13.3 L 13.5-17.5 g/dL Hematocrit 38.3 L 41.0-53.0 % Mean Corpuscular Volume 88.8 80.0-100.0 fL Mean Corpuscular Hemoglobin 30.9 28.0-32.0 pg Mean Corpuscular Hemoglobin Concent 34.8 32.0-36.0 g/dL Red Cell Distribution Width 13.1 11.8-14.3 % Platelet Count 158 140-450 10^3/uL Mean Platelet Volume 7.7 6.9-10.8 fL Neutrophils (%) (Auto) 65.4 37.0-80.0 % Lymphocytes (%) (Auto) 22.9 10.0-50.0 % Monocytes (%) (Auto) 9.3 0.0-12.0 % Eosinophils (%) (Auto) 1.6 0.0-7.0 % Basophils (%) (Auto) 0.8 0.0-2.0 % Neutrophils # (Auto) 2.8 1.6-8.6 10 ^3/uL Lymphocytes # (Auto) 1.0 0.4-5.4 10 ^3/uL Monocytes # (Auto) 0.4 0-1.3 10 ^3/uL Eosinophils # (Auto) 0.1 0-0.8 10 ^3/uL Basophils # (Auto) 0 0-0.2 10 ^3/uL Nucleated Red Blood Cells 0.3 % Prothrombin Time 10.9 9.3-11.8 sec Prothrombin Time INR 1.03 0.9-1.15 Sodium Level 139 136-145 mmol/L Potassium Level 4.1 3.5-5.1 mmol/L Chloride Level 101 98-107 mmol/L Carbon Dioxide Level 29 20-31 mmol/L Anion Gap 9 5-15 Blood Urea Nitrogen 19 9-23 mg/dL Creatinine 1.14 0.700-1.30 mg/dL Glomerular Filtration Rate Calc 70 >90 mL/min BUN/Creatinine Ratio 16.7 10.0-20.0 Serum Glucose 145 H 74-106 mg/dL Calcium Level 9.3 8.7-10.4 mg/dL Total Bilirubin 0.8 0.2-1.0 mg/dL Aspartate Amino Transferase (AST) 53 H 13-40 U/L Alanine Aminotransferase (ALT) 33 7-40 U/L Alkaline Phosphatase 38 L 46-116 U/L Total Protein 6.5 5.7-8.2 g/dL Albumin 4.0 3.2-4.8 g/dL Assessment Recurrent syncope secondary to sinus pauses. Status post ablation for atrial dysrhythmias associated ventricular dysrhythmias. Underlying coronary artery disease. Plan/Recommendation Patient is being admitted for pacemaker implantation. We will place a dual- chamber rate responsive pacemaker. Continue risk factor modification. Plan discussed with: Patient NYHA Physical activity limitations: Class1(None)absent sob, Date of Service: Mar 15, 2025 Billing Provider: MILLICENT COX Sr., MD Cardiology Common Codes: [id number] INP/OBS CARE (High) MILLICENT COX Sr., MD Mar 15, 2025 17:01
[2025-03-15 20:00] VITALS: PULSE 57; PULSE 68
[2025-03-15 20:07] VITALS: BP 152/68; PULSE 52; RESP 18; O2SAT 96
[2025-03-15 20:47] VITALS: BP 143/65; PULSE 64; RESP 18; TEMP 98.2; O2SAT 97
[2025-03-15] MEDS: OXYMETAZOLINE HCL 0.05 % NASAL SPRAY 15ML EACHNOSTRI PRN (21:16)
[2025-03-16] VITALS (12 sets, daily range): BP systolic 117–195; BP diastolic 68–101; PULSE 55–74; RESP 10–22; TEMP 97.5–98.8; O2SAT 95–100
[2025-03-16] MEDS: VANCOMYCIN HCL 1000 MG VL ONE (08:17)
[2025-03-16] MEDS: LIDOCAINE 2%HCL (LOCAL ANESTH.) INJ 20ML MDV ONE (08:18)
[2025-03-16] MEDS: VANCOMYCIN 1GM/250ML KIT 250 ML IV ONE (08:18)
[2025-03-16] MEDS: MIDAZOLAM HCL 2MG/2ML 2ml VIAL (1mg/ml) ONE (08:18)
[2025-03-16] MEDS: fentaNYL CITRATE 100 MCG/2 ML VL ONE (08:18)
[2025-03-16] MEDS: IODIXANOL 320MG/ML 100ML BTL IV ONE (08:19)
--- NOTE | 2025-03-16 08:20 | DVH ---
INDICATION: PACEMAKER PLACEMENT TECHNIQUE: Frontal view of the chest. COMPARISON: XR CHEST 2 VIEW on DOS: 11/10/24, XR CHEST 2 VIEW on DOS: 08/16/24, CR CHEST 2 VIEW on DOS: 03/28/24, CR CHEST 2 VIEW on DOS: 02/29/24 FINDINGS: . The heart and mediastinal contours are grossly unremarkable. There is no evidence of pleural disease. The lungs are clear. The bony structures of the chest are intact without fracture. IMPRESSION: 1. No evidence of acute disease.
--- NOTE | 2025-03-16 09:41 | DVHOP2 ---
Operative Report - 2 Report Details Date: 03/16/25 Preop Diagnosis: Sick sinus syndrome. Complete heart block. Postop Diagnosis: Successful placement of permanent dual-chamber pacemaker. Surgeon: Millicent Skinner MD Anesthesiologist: Conscious sedation. Anesthesia: Mac, Local Consent: The patient was informed of the risks and benefits of the procedure. These include but are not limited to complications of anesthesia, postoperative infection, incomplete relief of symptoms, recurrence of symptoms, damage to blood vessels, nerves and tendons, deep venous thrombosis, pulmonary embolism and possible need for repeat surgery in the future. Complications: No complications Findings: Complete heart block sick sinus syndrome Indications for Surgery: Syncope Name of Procedure Performed Permanent pacemaker implantation Procedure Details Procedure Details: Prior local anesthesia with 2% lidocaine to the left pectoral area and full informed consent obtained the patient was prepped and draped in usual fashion followed by an incision over the left pectoral area and dissection planes with the electrocautery and blunt dissection. We then accessed the subclavian vein after a venogram performed. Peel-away sheaths were used to place active fixation electrodes into the RV apex and right atrial appendage. After adequate capture and sensitivity thresholds were obtained these were sutured in place. The pocket was formed under the pectoral fascia and flushed with antibiotic solution. We then placed the generator attached to the leads into the pocket. Pocket was closed with 3-0 Vicryl and the skin was closed with 4-0 Monocryl. Patient tolerated the procedure well there complications fluoroscopy was used throughout. The implanted lead is an AMVIA Edge DRT-T serial number [id number] by [employer]. The implanted atrial lead is a Solia S 53 serial number [id number]. A Solia S 60 was placed into the ventricle. Serial [id number] also by [employer]. Implanted lead thresholds in the atrium : P waves four at 0.8 volts 0.4 milliseconds at 488 Ohms of impedance. The ventricular lead represented R-waves of nine volts. At 0.5 volts 0.4 milliseconds and 644 Ohms of impedance. The settings: Atrium and ventricle at 0.4 milliseconds at 3 volts bipolar configuration in both sensing and pacing. Settings at DDD mode lower rate of 60 upper rate of 130. Impression successful placement of DDD pacemaker. Recommendations continue medical therapy and antiarrhythmics as needed. Condition Good Disposition Home Date of Service: Mar 16, 2025 Billing Provider: MILLICENT SKINNER Sr., MD Cardiology Common Codes: [id number] INP/OBS CARE (High) Card. Pacer Implants/Gen [id number] DUAL LEAD PACER MILLICENT SKINNER Sr., MD Mar 16, 2025 09:41
[2025-03-16] MEDS: ATORVASTATIN 20 MG TAB PO SCH (09:55)
[2025-03-16] MEDS: TAMSULOSIN HYDROCHLORIDE 0.4 MG CAP PO SCH (09:55)
[2025-03-16] MEDS: LISINOPRIL 20 MG TAB PO SCH (09:56)
[2025-03-16] MEDS ORDERED: CARVEDILOL 3.125 MG TAB PO SCH (10:00)
--- NOTE | 2025-03-16 10:35 | DVH ---
INDICATION: POST PACEMAKER PLACEMENT TECHNIQUE: Frontal view of the chest. COMPARISON: XY CHEST PORTABLE on DOS: 03/16/25, XR CHEST 2 VIEW on DOS: 11/10/24, XR CHEST 2 VIEW on DOS: 08/16/24, CR CHEST 2 VIEW on DOS: 03/28/24, CR CHEST 2 VIEW on DOS: 02/29/24 FINDINGS: Left pacemaker noted.. The heart and mediastinal contours are grossly unremarkable. There is no evidence of pleural disease. The lungs are clear. The bony structures of the chest are intact without fracture. IMPRESSION: 1. No evidence of acute disease.
[2025-03-16] MEDS ORDERED: HYDR-4902 PO (14:49)
[2025-03-16] MEDS ORDERED: DOXY100C79 PO (14:49)
[2025-03-16] MEDS ORDERED: NALO4SPR2 (14:49)
--- NOTE | 2025-03-16 15:00 | DVHDS2 ---
Discharge Summary Date of Admission Mar 15, 2025 at 08:29 Date of Discharge: Mar 16, 2025 Labs/Diagnostic Data: Laboratory Results Test 03/15/25 14:19 White Blood Count 4.3 10^3/uL (4.4-10.8) Red Blood Count 4.32 10^6/uL (4.5-5.90) Hemoglobin 13.3 g/dL (13.5-17.5) Hematocrit 38.3 % (41.0-53.0) Mean Corpuscular Volume 88.8 fL (80.0-100.0) Mean Corpuscular Hemoglobin 30.9 pg (28.0-32.0) Mean Corpuscular Hemoglobin Concent 34.8 g/dL (32.0-36.0) Red Cell Distribution Width 13.1 % (11.8-14.3) Platelet Count 158 10^3/uL (140-450) Mean Platelet Volume 7.7 fL (6.9-10.8) Neutrophils (%) (Auto) 65.4 % (37.0-80.0) Lymphocytes (%) (Auto) 22.9 % (10.0-50.0) Monocytes (%) (Auto) 9.3 % (0.0-12.0) Eosinophils (%) (Auto) 1.6 % (0.0-7.0) Basophils (%) (Auto) 0.8 % (0.0-2.0) Neutrophils # (Auto) 2.8 10 ^3/uL (1.6-8.6) Lymphocytes # (Auto) 1.0 10 ^3/uL (0.4-5.4) Monocytes # (Auto) 0.4 10 ^3/uL (0-1.3) Eosinophils # (Auto) 0.1 10 ^3/uL (0-0.8) Basophils # (Auto) 0 10 ^3/uL (0-0.2) Nucleated Red Blood Cells 0.3 % Prothrombin Time 10.9 sec (9.3-11.8) Prothrombin Time INR 1.03 (0.9-1.15) Sodium Level 139 mmol/L (136-145) Potassium Level 4.1 mmol/L (3.5-5.1) Chloride Level 101 mmol/L (98-107) Carbon Dioxide Level 29 mmol/L (20-31) Anion Gap 9 (5-15) Blood Urea Nitrogen 19 mg/dL (9-23) Creatinine 1.14 mg/dL (0.700-1.30) Glomerular Filtration Rate Calc 70 mL/min (>90) BUN/Creatinine Ratio 16.7 (10.0-20.0) Serum Glucose 145 mg/dL (74-106) Calcium Level 9.3 mg/dL (8.7-10.4) Total Bilirubin 0.8 mg/dL (0.2-1.0) Aspartate Amino Transferase (AST) 53 U/L (13-40) Alanine Aminotransferase (ALT) 33 U/L (7-40) Alkaline Phosphatase 38 U/L (46-116) Total Protein 6.5 g/dL (5.7-8.2) Albumin 4.0 g/dL (3.2-4.8) Other Laboratory Tests 03/15/25 14:19 Brief Hx & Hospital Course: 69-year-old male with a known history of chronic AFib currently off of Eliquis for pacemaker placement, known CAD status post PCI, hypertension, previous history of CVA without any residual deficit, left carotid artery stenosis status post left carotid endarterectomy, patient was recently hospitalized for syncope was sent home on Holter monitoring/event monitoring patient was found to have sinus pauses multiple of them 5.2 the longest one. Eventually patient was recommended to be electively admitted to the hospital patient underwent pacemaker placement. Patient is currently stable to be discharged as per Cardiology. Patient is requesting pain meds. He will be also given some p.o. antibiotics. Patient is being discharged under stable condition. Condition at Discharge: Stable Final Diagnosis/Problems List 69-year-old male with a known history of CAD status post PCI with a five stents, hypertension, chronic AFib currently on Eliquis, history of CVA was on Plavix currently taken off three weeks ago, history of left carotid artery stenosis status post carotid endarterectomy was seen in the office by , parachute panel joiner found, patient was found to have sinus pause 5 seconds. 1. Sinus pause scheduled for pacemaker placement 2. Chronic AFib 3. CAD status post PCI 4. Hypertension 5. History of CVA without any residual deficit 6. Left carotid artery stenosis status post left carotid endarterectomy Discharge Disposition: Home SNF Discharge Will this Physician continue t: No Discharge Instruct/Medications Diet: Cardiac 2g Na,low cholest Activity: See Comment Activity comment: No driving, no signing legal documents, no playing on machinery while on narcotics. Follow Up/Referral: Follow up with the PCP and Dr. Skinner in one week Medications: Resume home medication for, please take Eliquis and carvedilol twice a day not once a day. Patient is currently off of Plavix. New Medications: Doxycycline (Monohydrate) (Doxycycline) 100 Mg Cap 100 MG PO BID for 7 Days, #14 CAP Hydrocodone-Acetaminophen (Hydrocodone Bitartrate/AC 5-325 mg) 1 Tab Tab 1 TAB PO Q8HP PRN, #14 TAB Naloxone HCl (Narcan) 4 Mg/0.1 Ml Spr 4 MG NA PATTERN GRADER CUTTER, #2 SPRAY Continued Medications: Apixaban Base (Eliquis) 2.5 Mg Tab 2.5 MG PO DAILY, TAB Atorvastatin Calcium (Lipitor) 80 Mg Tab 80 MG PO DAILY, TAB Calcium Carbonate-Cholecalcife (Calcium 500 +D3 500-600 mg-Unit) 1 Tab Tab 1 TAB PO DAILY, TAB Carvedilol (Carvedilol) 3.125 Mg Tab 3.125 MG PO DAILY, TAB Clopidogrel Bisulfate (Plavix) 75 Mg Tab 75 MG PO DAILY, TAB Lisinopril (Lisinopril) 20 Mg Tab 20 MG PO, TAB Tamsulosin Hcl (Flomax) 0.4 Mg Cap 0.4 MG PO DAILY, CAP Scheduled Apixaban Base (Eliquis), 2.5 MG PO DAILY, (Reported) Atorvastatin Calcium (Lipitor), 80 MG PO DAILY, (Reported) Calcium Carbonate-Cholecalcife (Calcium 500 +D3 500-600 mg-Unit), 1 TAB PO DAILY, (Reported) Carvedilol (Carvedilol), 3.125 MG PO DAILY, (Reported) Clopidogrel Bisulfate (Plavix), 75 MG PO DAILY, (Reported) Doxycycline (Monohydrate) (Doxycycline), 100 MG PO BID Naloxone HCl (Narcan), 4 MG NA PATTERN GRADER CUTTER Tamsulosin Hcl (Flomax), 0.4 MG PO DAILY, (Reported) Scheduled PRN Hydrocodone-Acetaminophen (Hydrocodone Bitartrate/AC 5-325 mg), 1 TAB PO Q8HP PRN Miscellaneous Medications Lisinopril (Lisinopril), 20 MG PO, (Reported) Discharge Statement: "Patient was advised to return to the ER or call 911 if any headaches, dizziness, shortness of breath, chest pain, abdominal pain, bleeding, fevers, or worsening of medical condition. Patient was counseled about treatment plan, medications, possible side effects, patientverbalized understanding. All questions were answered to the best of my ability. This discharge took greater then 30 minutes in planning, reviewing documentation, counseling the patient, and discussing with other team members." ASSESSMENT ASSESSMENT Assessment 69-year-old male with a known history of CAD status post PCI with a five stents, hypertension, chronic AFib currently on Eliquis, history of CVA was on Plavix currently taken off three weeks ago, history of left carotid artery stenosis status post carotid endarterectomy was seen in the office by , parachute panel joiner found, patient was found to have sinus pause 5 seconds. 1. Sinus pause scheduled for pacemaker placement 2. Chronic AFib 3. CAD status post PCI 4. Hypertension 5. History of CVA without any residual deficit 6. Left carotid artery stenosis status post left carotid endarterectomy Date of Service: Mar 16, 2025 Billing Provider: MIGUELITO HENRY MD Common Visit Codes: NOT BILLABLE MIGUELITO HENRY MD Mar 16, 2025 15:00
--- NOTE | 2025-03-19 12:11 | ECG ---
[facility] Test Date: 2025-03-16 Test Time: 07:51:32 Pat Name: ERIK ESTRADA Department: Room: 0212T A Gender: M Master [place]: OLINDA CHEATHAM : 1955 Requested By: MILLICENT COX Order Number: [id number] Reading MD: Millicent Cox Measurements Intervals [place] Rate: 53 P: 5 MO: 240 QRS: 15 QRSD: 100 T: 23 QT: 442 QTc: 414 Interpretive Statements Sinus bradycardia with 1st degree AV block Electronically Signed On 03-22-2025 18:16:31 PST by Millicent Cox Please click the below link to view image of tracing.
--- NOTE | 2025-03-19 13:44 | ECG ---
[facility] Test Date: 2025-03-16 Test Time: 09:49:13 Pat Name: ERIK ESTRADA Department: Room: 0212T A Gender: M Rn Anesthesiology: : 1955 Requested By: MILLICENT SKINNER Order Number: [id number] Reading MD: Millicent Skinner Measurements Intervals [place] Rate: 60 P: 0 NM: 0 QRS: 53 QRSD: 98 T: 45 QT: 424 QTc: 424 Interpretive Statements Electronic atrial pacemaker Electronically Signed On 03-22-2025 18:19:02 PST by Millicent Skinner Please click the below link to view image of tracing.
== END 2025-03-16 19:14 | disposition home or self-care (01) | DRG 243 ==
LOC: OVERFLOW 03-15 08:29 → TELE-CENTR 03-15 09:17
PROVIDERS: ADMIT Internal Medicine; ATTEND Internal Medicine
PROC: 0JH606Z Insertion of Pacemaker, Dual Chamber into Chest Subcutaneous Tissue and Fascia, Open Approach (ICD-10-PCS; principal; 2025-03-16)
PROC: 02H63JZ Insertion of Pacemaker Lead into Right Atrium, Percutaneous Approach (ICD-10-PCS; 2025-03-16)
PROC: 02HK3JZ Insertion of Pacemaker Lead into Right Ventricle, Percutaneous Approach (ICD-10-PCS; 2025-03-16)
PROC: B5161ZZ Fluoroscopy of Right Subclavian Vein using Low Osmolar Contrast (ICD-10-PCS; 2025-03-16)
DX: I49.5 Sick sinus syndrome (principal); I44.2 Atrioventricular block, complete; Z79.01 Long term (current) use of anticoagulants; I65.22 Occlusion and stenosis of left carotid artery; I10 Essential (primary) hypertension; I48.20 Chronic atrial fibrillation, unspecified; E78.5 Hyperlipidemia, unspecified; I25.10 Atherosclerotic heart disease of native coronary artery without angina pectoris; Z80.6 Family history of leukemia; Z86.73 Personal history of transient ischemic attack (TIA), and cerebral infarction without residual deficits; Z95.5 Presence of coronary angioplasty implant and graft
CPT/HCPCS: 33208; 36012; 36415; 71045; 80053; 85025; 85610; 87081; 93005; 99152; G0378; J2250; Q9967